=== PATIENT | male | born 1980 | race Caucasian/White ===

== ENCOUNTER 2016-12-04 05:21 | Emergency (ER) ==
[2016-12-04 05:33] VITALS: BP 142/81; TEMP 97.9; BMI 32.8
[2016-12-04] MEDS: TORADOL IM STA (05:48)
[2016-12-04] MEDS: AUGMENTIN 875-125 MG TAB PO STA (05:49)
--- NOTE | 2016-12-04 05:50 | ED.PDOC ---
General ED Provider: Dr. SAVAGE TOLBERT Chief Complaint: Tooth Problem Stated Complaint: Patient reports right upper dental pain for 3 days. Has been gaggling glycerin which has helped. He is on his way to [place] where he lives. Has not take motrin or Tylenol Time Seen by Physician: 05:30 Mode of Arrival: Walk-In Information Source: Patient Exam Limitations: No limitations Nursing and Triage Documentation Reviewed and Agree: Yes EENT Complaint Exam - Dental/Oral Complaint/Exam Mechanism of Injury: No known trauma Onset/Duration: 3 days Symptoms Are: Still present Timing: Constant Initial Severity: Moderate Current Severity: Severe Location: Left upper jaw Character: Reports: Aching, Throbbing Aggravating: Reports: Heat, Cold, Chewing Associated Signs and Symptoms: Reports: Swelling, Foul odor, Foul taste in mouth Related History: Reports: Similar episode Cardiac Risk Factors: Reports: None Dental/Oral Surgical History: Reports: None Tooth Findings: Present: Gross decay, Gross caries, Abcess Cervical Lymphadenopathy Present: No Facial Swelling Present: Yes Bleeding Present: No Oropharynx Findings: Absent: Clots, Active bleeding Septal Hematoma: No Foreign Body Present: No Dysphagia Present: No Drooling Present: No Asymmetrical Tonsillar Swelling Present: No Uvula Midline: No Hyacinth-tonsillar Fluctuence: No Palatal Petechiae Present: No Scarlatinaform Rash Present: No Teeth Picture: 1 - dental caries 2 - dental carries Differential Diagnoses: Dental Abcess, Dental Caries, Fractured Tooth Review of Systems - Review Of Systems Constitutional: Reports: No symptoms Ears, Nose, Mouth, Throat: Reports: Mouth pain Neurological: Reports: Anxiety All Other Systems: Reviewed and Negative Past Medical History - Past Medical History Endocrine: Reports: None Cardiovascular: Reports: None Respiratory: Reports: None Hematological: Reports: None Gastrointestinal: Reports: None Genitourinary: Reports: None Neuro/Psych: Reports: None Musculoskeletal: Reports: None Cancer: Reports: None - Surgical History General Surgical History: Reports: None - Family History Family History: Reports: None - Social History Smoking Status: Never smoker Hx Substance Use: No Alcohol Screening: Occasionally - Immunizations Tetanus Shot up to Date: No Physical Exam - Physical Exam Appearance: Ill-appearing Ill-appearing: Mild Pain Distress: Severe Eyes: A[place]ER, EOMI, Conjunctiva clear Neck: Supple Respiratory: Airway patent, Breath sounds clear, Breath sounds equal, Respirations nonlabored Cardiovascular: RRR, Pulses normal, No rub, No murmur Psychiatric: Anxious Critical Care Note - Critical Care Note Total Time (mins): 0 Course - Course Orders, Labs, Meds: Orders Category Date Time Status Amoxicillin/Potassium Clav [Augmentin 875-125 mg Tab] MEDS 12/04/16 05:38 Stat 1 tab PO ONCE STA Ketorolac Tromethamine [Toradol] MEDS 12/04/16 05:38 Stat 60 mg IM ONCE STA Vital Signs: Temp Pulse Resp BP Pulse Ox 12/04/16 05:24 97.9 F 57 L 20 142/81 H 97 Departure - Departure Time of Disposition: 05:56 Disposition: HOME SELF-CARE Discharge Problem: Dental abscess Instructions: Dental Abscess (ED), Dental Caries (ED), Toothache (ED) Condition: Stable Pt referred to PMD for follow-up: Yes Additional Instructions: Take medications as prescribed Follow up with your dentist in the next 3 days Prescriptions: Amoxicillin/Potassium Clav [Augmentin 500-125 mg Tab] 1 tab PO Q8HR #30 tablet Ibuprofen 800 mg PO TID #30 tablet Allergies/Adverse Reactions: Allergies No Known Allergies Allergy (Unverified 12/04/16 05:29) Home Medications: Ambulatory Orders Amoxicillin/Potassium Clav [Augmentin 500-125 mg Tab] 1 tab PO Q8HR #30 tablet 12/04/16 Ibuprofen 800 mg PO TID #30 tablet 12/04/16 Disposition Discussed With: Patient
== END 2016-12-04 06:10 | disposition home or self-care (01) ==
LOC: ED 05:21
DX: K04.7 Periapical abscess without sinus (principal); K02.7 Dental root caries
CPT/HCPCS: 96372; 99282